=== PATIENT | female | born 1990 | race Caucasian/White ===

== ENCOUNTER 2019-02-05 01:50 | Emergency (ER) | payer OTHER ==
[~2019-02-05] VITALS: Ht 157.5 cm; Wt 74.7 kg
[2019-02-05 01:54] VITALS: Ht 157.5 cm; Wt 74.7 kg
[2019-02-05] MEDS ORDERED: LORAZEPAM (2 MG/ML) INJ IV ONE (02:30)
[2019-02-05] MEDS ORDERED: LORAZEPAM 2 MG INJ ONE (02:56)
[2019-02-05] MEDS ORDERED: LORAZEPAM 2 MG INJ IV SCH (03:08)
[2019-02-05] MEDS ORDERED: HYDR-4011 PO (05:00)
[2019-02-05] MEDS ORDERED: ONDA8TAB14 PO (05:00)
--- NOTE | 2019-02-05 05:00 | ERD ---
ER Documentation Chief Complaint Chief Complaint PELVIC PAIN, NO VAG BLEEDING X1DAY; hx of sz-FEELING AURA HPI This is a 28 year old female with a history of an ovarian cyst who is presenting with acute on chronic left pelvic pain which is not associated with bleeding. She is currently in the process of seeing an lav crewman for potential removal. She has not had a fever. She has a history of seizure and said she felt an aura coming on. Did not actually have a seizure. ROS All systems reviewed and are negative except as per history of present illness. Medications Home Meds Active Scripts Ondansetron (Ondansetron Odt) 8 Mg Tab.rapdis, 8 MG PO Q6H PRN for NAUSEA AND/OR VOMITING, #10 TAB Prov:ELKIN MADISON MD 02/05/19 Hydrocodone/Acetaminophen ([place] 5-325 Tablet) 1 Each Tablet, 1 TAB PO Q6H PRN for PAIN, #7 TAB Prov:ELKIN MADISON MD 02/05/19 Allergies Allergies: Coded Allergies: No Known Allergy (Verified Allergy, Unknown, 03/22/09) PMhx/Soc History of Surgery: No Hx Neurological Disorder: Yes (SEIZURE) Hx Respiratory Disorders: No Hx Cardiac Disorders: No Hx Psychiatric Problems: No Hx Miscellaneous Medical Probl: No Hx Alcohol Use: No Hx Substance Use: No Hx Tobacco Use: No Smoking Status: Never smoker Physical Exam Vitals Vital Signs Date Temp Pulse Resp B/P (MAP) Pulse Ox O2 O2 Flow FiO2 Time Delivery Rate 02/05/19 66 18 91/66 (74) 100 Room Air 05:38 02/05/19 97.6 79 19 132/85 100 01:54 (101) Physical Exam Const: No acute distress Head: Atraumatic Eyes: Normal Conjunctiva ENT: Normal External Ears, Nose and Mouth. Neck: Full range of motion. No meningismus. Resp: Clear to auscultation bilaterally Cardio: Regular rate and rhythm, no murmurs Abd: Soft, non tender, non distended, no rebound or guarding, negative Mcburneys point tenderness. Normal bowel sounds Skin: No petechiae or rashes Back: No midline or flank tenderness Ext: No cyanosis, or edema Neur: Awake and alert Psych: Normal Mood and Affect Result Diagram: 02/05/19 0349 02/05/19 0349 Results 24 hrs Laboratory Tests Test 02/05/19 03:48 02/05/19 03:49 Urine Test NEGATIVE White Blood Count 8.5 10^3/ul Red Blood Count 4.29 10^6/ul Hemoglobin 13.0 g/dl Hematocrit 38.6 % Mean Corpuscular Volume 90.0 fl Mean Corpuscular Hemoglobin 30.3 pg Mean Corpuscular Hemoglobin Concent 33.7 g/dl Red Cell Distribution Width 12.9 % Platelet Count 271 10^3/UL Mean Platelet Volume 11.2 fl Immature Granulocytes % 0.400 % Neutrophils % 49.7 % Lymphocytes % 38.2 % Monocytes % 8.8 % Eosinophils % 2.5 % Basophils % 0.4 % Nucleated Red Blood Cells % 0.0 /100WBC Immature Granulocytes # 0.030 10^3/ul Neutrophils # 4.2 10^3/ul Lymphocytes # 3.3 10^3/ul Monocytes # 0.8 10^3/ul Eosinophils # 0.2 10^3/ul Basophils # 0.0 10^3/ul Nucleated Red Blood Cells # 0.0 10^3/ul Urine Color YELLOW Urine Clarity SLIGHTLY CLOUDY Urine pH 5.0 Urine Specific [place] 1.014 Urine Ketones NEGATIVE mg/dL Urine Nitrite NEGATIVE mg/dL Urine Bilirubin NEGATIVE mg/dL Urine Urobilinogen NEGATIVE mg/dL Urine Leukocyte Esterase NEGATIVE [place]/ul Urine Microscopic RBC 1 /HPF Urine Microscopic WBC 3 /HPF Urine Squamous Epithelial Cells FEW /HPF Urine Hemoglobin 2+ mg/dL Urine Glucose NEGATIVE mg/dL Urine Total Protein NEGATIVE mg/dl Sodium Level 143 mmol/L Potassium Level 4.1 mmol/L Chloride Level 108 mmol/L Carbon Dioxide Level 27 mmol/L Anion Gap 8 Blood Urea Nitrogen 14 mg/dl Creatinine 0.64 mg/dl Est Glomerular Filtrat Rate mL/min > 60 mL/min Glucose Level 94 mg/dl Calcium Level 9.3 mg/dl Current Medications Medications Dose Sig/Adis Start Time Status Last (Trade) Ordered Route PRN Stop Time Admin Dose Reason Admin Lorazepam 0.5 mg ONCE ONCE 02/05/19 DC 02/05/19 (Ativan IV 02:30 03:56 (Nicu)) 02/05/19 02:31 Lorazepam 2 mg STK-MED 02/05/19 DC (Ativan) ONCE .ROUTE 02:56 02/05/19 02:57 Lorazepam 0.5 mg ONCE IV 02/05/19 DC (Ativan) 03:08 02/05/19 03:30 [place] [id number] Radiology Main Line: [phone] DIAGNOSTIC IMAGING REPORT Patient: MARYCHUY DAIGLE : 1990 Age: 28 Sex: F MR #: [id number] DOS: 02/05/19 0223 Ordering MD: ELKIN MADISON MD Location: E/R Room/Bed: PROCEDURE: Ultrasound pelvis CLINICAL INDICATION: Pelvic pain. TECHNIQUE: Sonographic imaging of the pelvis was performed using transabdominal and transvaginal techniques. Grayscale and color Doppler was utilized. COMPARISON: None. FINDINGS: UTERUS: Measures 8.5 x 3.8 x 6.3 cm with an IUD in the uterine canal. ENDOMETRIAL STRIPE: 0.7 cm in thickness. RIGHT OVARY: Measures 3.3 x 1.7 x 2.5 cm without appreciated abnormality. Vascular flow is demonstrated. LEFT OVARY: Measures 7.1 x 5.3 x 6.3 cm and is replaced by a complex mostly hyperechoic cystic structure with ground-glass appearance. The more posterior component is hypoechoic. Peripheral parenchymal vascular flow is seen. FREE FLUID: None. IMPRESSION: 1. IUD is present within the uterine canal. 2. Enlarged left ovary measuring 7.1 x 5.3 x 6.3 cm which is replaced by a cystic structure most resembling an endometrioma. Consider follow-up ultrasound in the next 6-12 weeks to assess stability or as otherwise warranted. RPTAT:HGST Constantine Patel Physician Date Time Electronically viewed and signed by Constantine Patel Physician on 02/05/2019 04:24 GT/ CC: ELKIN MADISON MD [id number] Procedures/MDM This is a pleasant 28 year old female with a history of pelvic pain with prior history of ovarian cyst presents for acute on chronic pain. There is evidence of flow on US and the patient's pain is controlled. I don't suspect ovarian torsion at this and she has no infectious signs or symptoms to suggest PID. Will DC with Rx for [place] #7 and zofran,provided images for expedited kiln loader f/u. At DC patient in no distress and had no seizure episodes in ED. Departure Diagnosis: Primary Impression: Ovarian cyst Laterality: unspecified laterality Qualified Codes: N83.209 - Unspecified ovarian cyst, unspecified side Condition: Stable Patient Instructions: Ovarian Cyst Additional Instructions: Call your primary care doctor TOMORROW for an appointment during the next 2-3 days.See the doctor sooner or return here if your condition worsens before your appointment time. ELKIN MADISON MD February 05, 2019 05:00
[2019-02-05 05:38] VITALS: BP 91/66; PULSE 66; RESP 18
== END 2019-02-05 05:45 | disposition home or self-care (01) ==
LOC: E/R 01:50
DX: N83.202 Unspecified ovarian cyst, left side (principal)
CPT/HCPCS: 36415; 76830; 76856; 80048; 81001; 84703; 85025; 96374; J2060; Z7502

== ENCOUNTER 2019-05-19 06:08 | Inpatient (IN) | payer OTHER ==
[~2019-05-19] VITALS: Ht 167.6 cm; Wt 70.7 kg
[2019-05-19] VITALS (15 sets, daily range): BP systolic 100–112; BP diastolic 52–69; PULSE 65–90; RESP 11–21; Ht 167.6 cm; Wt 70.7 kg
[~2019-05-19 06:08] MED LIST: CEFAZOLIN 2 GM/50 ML (PMX) 50 ML IVPB ONE; DEXTROSE 5%-0.9% NACL 1,000 ML IV SCH; HYDR-4011 PO; LACTATED RINGER'S 1,000 ML (ENTER RATE) IV SCH; ONDA8TAB14 PO
[2019-05-19] MEDS ORDERED: CEFAZOLIN 2 GM/50 ML (PMX) 50 ML IVPB ONE (09:00)
[2019-05-19] MEDS ORDERED: HYDROmorphONE 1 MG/5 ML IV SYRINGE IV PRN (10:30)
[2019-05-19] MEDS ORDERED: DIPHENHYDRAMINE 50 MG INJ IV PRN (10:30)
[2019-05-19] MEDS ORDERED: FENTAnyl 50 MCG/ML VIAL IV PRN ×2 (10:30)
[2019-05-19] MEDS ORDERED: MEPERIDINE 25 MG INJ IV PRN (10:30)
[2019-05-19] MEDS ORDERED: METOCLOPRAMIDE 10 MG INJ IV PRN (10:30)
[2019-05-19] MEDS ORDERED: ALBUTEROL 0.083% (NEB) 2.5 MG/3 ML AMP HHN PRN (10:30)
[2019-05-19] MEDS ORDERED: ONDANSETRON 4 MG INJ IV PRN (10:30)
[2019-05-19] MEDS ORDERED: FENTAnyl 50 MCG/ML VIAL ONE (10:34)
[2019-05-19] MEDS ORDERED: ROPIVACAINE 0.5 % 30 ML VIAL ONE (10:36)
[2019-05-19] MEDS ORDERED: MIDAZOLAM 1 MG/ML 2 ML INJ ONE (10:55)
[2019-05-19] MEDS ORDERED: SUGAMMADEX SODIUM 200 MG/2 ML VIAL IV ONE (11:32)
[2019-05-19] MEDS ORDERED: PROPOFOL 20 ML ONE (11:32)
[2019-05-19] MEDS ORDERED: CEFAZOLIN 1 GM INJ ONE (11:32)
[2019-05-19] MEDS ORDERED: LIDOCAINE 100 MG SYRINGE ONE (11:32)
[2019-05-19] MEDS ORDERED: ROCURONIUM 50 MG INJ ONE (11:32)
[2019-05-19] MEDS: LACTATED RINGER'S 1,000 ML IV SCH ×2 (11:58→22:00)
[2019-05-19] MEDS ORDERED: ZOLPIDEM 5 MG TAB PO PRN (12:00)
[2019-05-19] MEDS ORDERED: HYDROCODONE/APAP (5/325) TAB PO PRN ×2 (12:00)
[2019-05-19] MEDS ORDERED: DIPHENHYDRAMINE 50 MG CAP PO PRN (12:00)
[2019-05-19] MEDS ORDERED: ONDANSETRON INJ 6 MG in DEXTROSE 5% 50 ML IVPB PRN (12:00)
[2019-05-19] MEDS: METOCLOPRAMIDE 10 MG TAB PO SCH ×2 (12:00→18:00)
[2019-05-19] MEDS: HYDROmorphONE 1 MG/5 ML IV SYRINGE IV PRN ×2 (12:14→12:24)
[2019-05-19] MEDS: KETOROLAC 30 MG INJ IV SCH ×3 (12:29→23:55)
[2019-05-19] MEDS: DEXTROSE 5%-0.9% NACL 1,000 ML IV SCH ×3 (13:44→23:54)
[2019-05-19] MEDS: CEFAZOLIN 2 GM/50 ML (PMX) 50 ML IVPB SCH ×2 (14:15→21:28)
[2019-05-19] MEDS: ENOXAPARIN 30 MG/0.3 ML SYG SC SCH (21:30)
[2019-05-20 03:06] VITALS: BP 97/62; PULSE 80; RESP 17
[2019-05-20] MEDS: CEFAZOLIN 2 GM/50 ML (PMX) 50 ML IVPB SCH (05:27)
[2019-05-20] MEDS: KETOROLAC 30 MG INJ IV SCH ×3 (05:27→18:08)
[2019-05-20] MEDS: DEXTROSE 5%-0.9% NACL 1,000 ML IV SCH (05:31)
[2019-05-20] MEDS: METOCLOPRAMIDE 10 MG TAB PO SCH ×5 (06:00→23:19)
[2019-05-20] MEDS: LACTATED RINGER'S 1,000 ML IV SCH (06:00)
[2019-05-20 07:43] VITALS: BP 102/56; PULSE 74; RESP 18
[2019-05-20] MEDS: ENOXAPARIN 30 MG/0.3 ML SYG SC SCH ×2 (09:54→21:19)
[2019-05-20] MEDS: IBUPROFEN 800 MG TAB PO SCH ×2 (13:20→21:04)
[2019-05-20 15:00] VITALS: BP 107/71; PULSE 67; RESP 16
[2019-05-20 20:00] VITALS: BP 109/71; PULSE 71; RESP 18
[2019-05-21 02:00] VITALS: BP 109/57; PULSE 83; RESP 18
[2019-05-21] MEDS: METOCLOPRAMIDE 10 MG TAB PO SCH (05:59)
[2019-05-21 08:08] VITALS: BP 98/62; PULSE 83; RESP 16
[2019-05-21] MEDS: IBUPROFEN 800 MG TAB PO SCH (09:26)
[2019-05-21] MEDS: ENOXAPARIN 30 MG/0.3 ML SYG SC SCH (09:28)
== END 2019-05-21 12:10 | disposition home or self-care (01) | DRG 743 ==
LOC: REC 06:08 → 2NE 13:10
PROVIDERS: ADMIT Obstetrics & Gynecology; ATTEND Obstetrics & Gynecology
PROC: 0UB14ZZ Excision of Left Ovary, Percutaneous Endoscopic Approach (ICD-10-PCS; principal; 2019-05-19 10:30)
PROC: 0U504ZZ Destruction of Right Ovary, Percutaneous Endoscopic Approach (ICD-10-PCS; 2019-05-19 10:30)
DX: D27.1 Benign neoplasm of left ovary (principal); E28.2 Polycystic ovarian syndrome; D25.9 Leiomyoma of uterus, unspecified; N92.6 Irregular menstruation, unspecified; D27.0 Benign neoplasm of right ovary
CPT/HCPCS: 80051; 81003; 82565; 84520; 85025; 87086; 88305; J0690; J1170; J1650; J1885; J2001; J2175; J2250; J2405; J2765; J2795; J3010; J7042; J7120